=== PATIENT | male | born 1950 | race Caucasian/White ===

== ENCOUNTER → 2018-02-09 | Outpatient (CLI) | payer MEDICARE ==
[~2018-02-09] MED LIST: ADV250/50 INH; DES5 PO; EZET1TAB53 PO; FLUT16SP20 NS; GLUC-129 PO; GUALA600 PO; MON10 PO; MULT-1335 PO; NABU-183 PO; OMEG-11 PO; PROAIRPT IH; ZINC50TA2 PO
== END ==
LOC: LAB 10:54
PROVIDERS: ATTEND Nurse Practitioner
DX: C44.311 Basal cell carcinoma of skin of nose (principal)
CPT/HCPCS: 88305